=== PATIENT | male | born 1985 ===

== ENCOUNTER 2017-08-21 00:49 | Emergency (ER) | payer OTHER ==
[2017-08-21 01:03] VITALS: RESP 18; TEMP 99.6
--- NOTE | 2017-08-21 01:11 | ED PDOC ---
HPI: Chest Pain Time Seen by Provider: 08/21/17 01:00 Chief Complaint (Nursing): Chest Pain Chief Complaint (Provider): chest tightness History Per: Patient History/Exam Limitations: no limitations Onset/Duration Of Symptoms: Hrs (2) Current Symptoms Are (Timing): Better Exacerbating Factors: Other (laying down) Additional History Per: Patient Additional Complaint(s): 32 y/o male presents for eval of chest tightness x 2 hours. Patient states he had just landed here on a flight from [place]. He notes tightness is associated with difficulty taking deep breaths. Patient states symptoms were worse when he laid down to try to sleep. Denies fever, congestion, cough, nausea/vomiting, palpitations, abdominal pain, leg pain/swelling, recent surgery , tobacco use. Past Medical History Reviewed: Historical Data, Nursing Documentation, Vital Signs Vital Signs: Last Vital Signs Temp 99.6 F 08/21/17 00:56 Pulse 83 08/21/17 01:13 Resp 18 08/21/17 00:56 BP 146/84 08/21/17 01:13 Pulse Ox 99 08/21/17 02:45 - Medical History PMH: No Chronic Diseases - Surgical History Surgical History: No Surg Hx - Family History Family History: States: No Known Family Hx - Social History Current smoker - smoking cessation education provided: No Alcohol: Occasional Drugs: Denies - Home Medications Home Medications: Ambulatory Orders Medication Instructions Recorded Famotidine [Pepcid] 20 mg PO BID #20 tab 08/21/17 - Allergies Allergies/Adverse Reactions: Allergies Allergy/AdvReac Type Severity Reaction Status Date / Time No Known Allergies Allergy Verified 08/21/17 01:03 Review of Systems ROS Statement: Except As Marked, All Systems Reviewed And Found Negative Cardiovascular: Positive for: Chest Pain Respiratory: Positive for: Shortness of Breath Physical Exam - Reviewed Nursing Documentation Reviewed: Yes Vital Signs Reviewed: Yes - Physical Exam Appears: Positive for: Well, Non-toxic, No Acute Distress Head Exam: Positive for: ATRAUMATIC, NORMAL INSPECTION, NORMOCEPHALIC Skin: Positive for: Normal Color Eye Exam: Positive for: Normal appearance ENT: Positive for: Normal ENT Inspection Cardiovascular/Chest: Positive for: Regular Rate, Rhythm Respiratory: Positive for: Normal Breath Sounds Gastrointestinal/Abdominal: Positive for: Normal Exam Back: Positive for: Normal Inspection Extremity: Positive for: Normal ROM Neurologic/Psych: Positive for: Alert, Oriented - Laboratory Results Result Diagrams: 08/21/17 01:10 08/21/17 01:10 - ECG ECG: Positive for: Viewed By Me (reviewed by ED attending) ECG Rhythm: Positive for: Sinus Rhythm O2 Sat by Pulse Oximetry: 99 Pulse Ox Interpretation: Normal - Radiology X-Ray: Viewed By Me X-Ray Interpretation: No Acute Disease - Progress ED Course And Treament: labs, urine, chest xray Patient given trial pepcid for symptoms with some improvement. Patient educated on findings, discharged with rx pepcid. Advised follow up PMD 2-3 days. Return to ED for worsening/concerning symptoms. Disposition - Clinical Impression Clinical Impression: Atypical chest pain - Patient ED Disposition Is Patient to be Admitted: No Counseled Patient/Family Regarding: Studies Performed, Diagnosis, Need For Followup, Rx Given - Disposition Disposition: Routine/Home Disposition Time: 02:52 Condition: IMPROVED Prescriptions: Famotidine [Pepcid] 20 mg PO BID #20 tab Instructions: Noncardiac Chest Pain (ED)
[2017-08-21 01:36] LABS: BASO % 0.4 % (0.0-2.0); EOS # 0.3 K/uL (0.0-0.7); EOS % 2.7 % (0.0-4.0); HEMATOCRIT 43.6 % (35.0-51.0); LYMPH # 2.8 K/uL (1.0-4.3); LYMPH % 30.1 % (20.0-40.0); MEAN CELL VOLUME 91.7 fl (80.0-94.0); MEAN CORPUSCULAR HEMOGLOBIN 31.1 pg (27.0-31.0); MEAN CORPUSCULAR HGB CONC 33.9 g/dL (33.0-37.0); MEAN PLATELET VOLUME 7.8 fl (7.2-11.7); MONO # 0.7 K/uL (0.0-0.8); MONO % 7.3 % (0.0-10.0); NEUT # 5.5 K/uL (1.8-7.0); NEUT % 59.5 % (50.0-75.0); NRBC % 0.1 % (0.0-0.0); RED CELL DISTRIBUTION WIDTH 13.7 % (11.5-14.5); WHITE BLOOD COUNT 9.2 K/uL (4.8-10.8)
[2017-08-21 01:49] LABS: ALB/GLOB RATIO 1.5 (1.0-2.1); ALKALINE PHOSPHATASE 88 U/L (38-126); ALT/SGPT 47 U/L (21-72); AST/SGOT 24 U/L (17-59); BILIRUBIN,TOTAL 0.5 mg/dl (0.2-1.3); BLOOD UREA NITROGEN 17 mg/dl (9-20); CALCIUM 8.9 mg/dL (8.4-10.2); CARBON DIOXIDE 23 mmol/L (22-30); CHLORIDE 102 mmol/L (98-107); GFR AFRICAN-AMERICAN > 60; GLUCOSE,RANDOM 99 mg/dL (75-110); POTASSIUM 4.2 MMOL/L (3.6-5.0); SODIUM 142 mmol/l (132-148); TOTAL PROTEIN 7.5 G/DL (6.3-8.2)
[2017-08-21 03:04] VITALS: BP 122/75; PULSE 79; O2SAT 97
--- NOTE | 2017-08-21 08:31 | RAD ---
HISTORY: Chest pain, shortness of breath COMPARISON: No prior. TECHNIQUE: Chest PA and lateral FINDINGS: LUNGS: No active pulmonary disease. PLEURA: No significant pleural effusion identified. No pneumothorax apparent. CARDIOVASCULAR: Normal. OSSEOUS STRUCTURES: No significant abnormalities. VISUALIZED UPPER ABDOMEN: Normal. OTHER FINDINGS: None. IMPRESSION: No active disease. Please note: No preliminary report/ innterpretation of this examination provided by emergency department personnel.
--- NOTE | 2017-08-21 09:11 | CARD ---
APPROVED REPORT EKG Measurement Heart [id number] <Conclusion> Sinus bradycardia with marked sinus arrhythmia Otherwise normal ECG
== END 2017-08-21 03:04 | disposition home or self-care (01) ==
LOC: H.ER 00:49
DX: R07.89 Other chest pain (principal)

== ENCOUNTER 2017-08-21 10:17 | Emergency (ER) | payer OTHER ==
--- NOTE | 2017-08-21 10:43 | ED PDOC ---
HPI: Chest Pain Time Seen by Provider: 08/21/17 10:24 Chief Complaint (Nursing): Chest Pain Chief Complaint (Provider): Chest pain History Per: Patient History/Exam Limitations: no limitations Onset/Duration Of Symptoms: Hrs Current Symptoms Are (Timing): Still Present Additional Complaint(s): 32yo male, presents to ED for evaluation of chest pain and shortness of breath, worsening since this morning. Of note, patient was seen in this facility earlier today, had a Chest x-ray, labs and was given Pepcid with relief of symptoms after taking Pepcid. He was discharged home with instructions to return if symptom worsened. 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 He denies any calf pain. Chest x-ray 08/21/17 at 01:08: HISTORY: Chest pain, shortness of breath COMPARISON: No prior. TECHNIQUE: Chest PA and lateral FINDINGS: LUNGS: No active pulmonary disease. PLEURA: No significant pleural effusion identified. No pneumothorax apparent. CARDIOVASCULAR: Normal. OSSEOUS STRUCTURES: No significant abnormalities. VISUALIZED UPPER ABDOMEN: Normal. OTHER FINDINGS: None. IMPRESSION: No active disease. Past Medical History Reviewed: Historical Data, Nursing Documentation, Vital Signs Vital Signs: Last Vital Signs Temp 98.2 F 08/21/17 10:53 Pulse 93 H 08/21/17 15:03 Resp 24 08/21/17 10:52 BP 110/61 08/21/17 10:52 Pulse Ox 97 08/21/17 10:53 - Surgical History Surgical History: No Surg Hx - Family History Family History: Denies: NE, CAD, Hypertension - Living Arrangements Living Arrangements: With Family - Social History Current smoker - smoking cessation education provided: No Alcohol: None Drugs: Denies - Home Medications Home Medications: Ambulatory Orders Medication Instructions Recorded Famotidine [Pepcid] 20 mg PO BID #20 tab 08/21/17 - Allergies Allergies/Adverse Reactions: Allergies Allergy/AdvReac Type Severity Reaction Status Date / Time No Known Allergies Allergy Verified 08/21/17 01:03 Review of Systems ROS Statement: Except As Marked, All Systems Reviewed And Found Negative Cardiovascular: Positive for: Chest Pain Respiratory: Negative for: Shortness of Breath Musculoskeletal: Negative for: Other (calf pain) Physical Exam - Reviewed Nursing Documentation Reviewed: Yes Vital Signs Reviewed: Yes - Physical Exam Appears: Positive for: In Acute Distress (acute painful distress) Eye Exam: Positive for: Normal appearance Neck: Positive for: Supple Cardiovascular/Chest: Positive for: Regular Rate, Rhythm. Negative for: Chest Non Tender (midsternal tenderness) Respiratory: Positive for: Normal Breath Sounds Extremity: Negative for: Pedal Edema, Calf Tenderness, Swelling Neurologic/Psych: Positive for: Alert, Oriented - Laboratory Results Result Diagrams: 08/21/17 10:30 08/21/17 10:30 - ECG ECG: Positive for: Interpreted By Me, Viewed By Me, Discussed With Electrical Project Engineer (Image of EKG sent to Dr. Mcnally at 1031) ECG Rhythm: Positive for: Sinus Rhythm, ST/T Changes (ST elevation anterolaterally, T wave inversion in 3) Interpretation Of ECG: STEMI Rate: 93 - Core Measure Core Measure Indicators: Code Heart - Critical Care Total Time (In Min): 42 Documented Critical Care: Time excludes all time spent performint seperately billable procedures Medical Decision Making Medical Decision Making: Impression: Acute STEMI 10:30 EKG read by provider. Code heart called 10:[address] Mcnally EKG image sent to Dr. Mcnally 10:33 -- Chest x-ray portable ordered -- Morphine 2mg IV -- Troponin -- CBC -- CMP -- PT -- PTT -- 3 Nitro SL -- Aspirin 375 mg -- Brilina 180 10:39 Dr. Mcnally called back, case discussed and patient to be transferred to catheter builder at [facility]. 10:45 -- Heparin 000 Bolus -- Heparin 500 units/hour 10:54 patient reports mild relief of pain with morphine -- DDimer 10:57 Patient transferred to [facility] by [facility]. Scribe Attestation: Documented by Kim Mccormick acting as a scribe for Michelle No MD. Provider Attestation: All medical record entries made by the Scribe were at my direction and personally dictated by me. I have reviewed the chart and agree that the record accurately reflects my personal performance of the history, physical exam, medical decision making, and the department course for this patient. I have also personally directed, reviewed, and agree with the discharge instructions and disposition. Disposition - Clinical Impression Clinical Impression: AMI (acute myocardial infarction) - Patient ED Disposition Is Patient to be Admitted: Transfer of Care - Disposition Disposition: Other Institution ([facility]) Disposition Time: 10:30 Condition: CRITICAL Forms: [facility] ([place]i)
[2017-08-21 10:49] LABS: BASO % 0.3 % (0.0-2.0); EOS # 0.1 K/uL (0.0-0.7); EOS % 0.5 % (0.0-4.0); HEMATOCRIT 45.2 % (35.0-51.0); LYMPH # 1.6 K/uL (1.0-4.3); MEAN CELL VOLUME 92.3 fl (80.0-94.0); MEAN CORPUSCULAR HEMOGLOBIN 30.9 pg (27.0-31.0); MEAN CORPUSCULAR HGB CONC 33.5 g/dL (33.0-37.0); MONO # 0.9 K/uL (0.0-0.8); MONO % 8.4 % (0.0-10.0); NEUT # 8.6 K/uL (1.8-7.0); NEUT % 76.8 % (50.0-75.0); NRBC % 0.1 % (0.0-0.0); RED CELL DISTRIBUTION WIDTH 13.7 % (11.5-14.5); WHITE BLOOD COUNT 11.3 K/uL (4.8-10.8)
[2017-08-21 10:54] VITALS: TEMP 98.2; O2SAT 97
[2017-08-21 11:00] LABS: ALB/GLOB RATIO 1.5 (1.0-2.1); ALKALINE PHOSPHATASE 69 U/L (38-126); ALT/SGPT 44 U/L (21-72); AST/SGOT 33 U/L (17-59); BILIRUBIN,TOTAL 0.9 mg/dl (0.2-1.3); BLOOD UREA NITROGEN 12 mg/dl (9-20); CALCIUM 9.4 mg/dL (8.4-10.2); CARBON DIOXIDE 23 mmol/L (22-30); CHLORIDE 104 mmol/L (98-107); GFR AFRICAN-AMERICAN > 60; GLUCOSE,RANDOM 121 mg/dL (75-110); POTASSIUM 4.4 MMOL/L (3.6-5.0); SODIUM 143 mmol/l (132-148); TOTAL PROTEIN 8.1 G/DL (6.3-8.2)
[2017-08-21] MEDS ORDERED: Heparin25000 units/250ml 1/2NS 25,000 UNITS/250 ML BAG IV ONE (11:07)
[2017-08-21 11:13] LABS: PARTIAL THROMBOPLASTIN TIME 24.6 Seconds (25.6-37.1)
[2017-08-21 11:19] VITALS: PULSE 93
[2017-08-21] MEDS ORDERED: Heparin25000 units/250ml 1/2NS 25,000 UNITS/250 ML BAG IV SCH ×2 (11:30)
[2017-08-21 12:12] VITALS: BP 110/61; RESP 24
--- NOTE | 2017-08-21 15:07 | RAD ---
HISTORY: Chest pain COMPARISON: 08/21/2017. FINDINGS: LUNGS: There are low lung volumes. No focal consolidation. PLEURA: No significant pleural effusion identified, no pneumothorax apparent. CARDIOVASCULAR: Normal. OSSEOUS STRUCTURES: No significant abnormalities. VISUALIZED UPPER ABDOMEN: Normal. OTHER FINDINGS: None. IMPRESSION: No active pulmonary disease. Low lung volumes may be related to poor inspiratory effort.
--- NOTE | 2017-08-22 08:51 | CARD ---
APPROVED REPORT EKG Measurement Heart [id number] <Conclusion> Normal sinus rhythm Possible old inferior infarct Abnormal ECG
== END 2017-08-21 11:00 | disposition short-term general hospital (02) ==
LOC: H.ER 10:17
DX: I21.3 ST elevation (STEMI) myocardial infarction of unspecified site (principal)
CPT/HCPCS: 71010; 80053; 82948; 84484; 85025; 85610; 85730; 93005; 96374; 99284; J1644; J2270